=== PATIENT | male | born 1960 | race Caucasian/White ===

== ENCOUNTER 2019-12-29 12:38 | Emergency (ER) | payer OTHER, SELFPAY ==
[2019-12-29 12:42] VITALS: BP 173/84; PULSE 107; RESP 19; TEMP 36.6; O2SAT 98; BMI 32.3
--- NOTE | 2019-12-29 12:53 | ED_ITS ---
HPI - Allergic Reaction <MARIA DOLORES Broussard - Last Filed: 12/30/19 01:38> General Chief complaint: Allergic Reaction Stated complaint: allergic to bee stings,got stung Time Seen by Provider: 12/29/19 12:41 Source: patient Mode of arrival: Ambulatory Limitations: no limitations History of Present Illness HPI narrative: This is a 59 year male, occasional cigar smoker, who has history of anaphylactic shock history from a bee sting about 9 years ago presents to ED with chief complain of stung by a bee on right volar forearm 30 minutes ago coming into ED. patient had taken 100 mg of Benadryl before coming into ED. he reports did not have EpiPen with him and had not used it. Patient states had anaphylactic shock he had tachycardia and became unconscious. He had another bee sting 2 years ago and had used EpiPen and did not required further treatment. Patient reports his feeling little bit nervous but denies chest pain, dyspnea, short of breath, oropharyngeal swelling. Patient is visitor from [facility]. Related Data Previous Rx's Medication Instructions Recorded prednisone 50 mg PO DAILY 4 Days #4 tab 12/29/19 Allergies Allergy/AdvReac Type Severity Reaction Status Date / Time No Known Drug Allergies Allergy Verified 12/29/19 12:46 Review of Systems <MARIA DOLORES Broussard - Last Filed: 12/30/19 01:38> Review of Systems Narrative: General: Denies fever, chills, fatigue, malaise, sweats. HEENT: Denies sinus pain, ear pain, sore throat, difficulty swallowing, dizziness. Respiratory: Denies dyspnea, cough, wheezing, hemoptysis, sputum. Cardiovascular: Denies chest pain, palpitations, orthopnea, edema. Gastrointestinal: Denies nausea, vomiting, abdominal pain, diarrhea, constipation, melena. Skin: Slight discomfort and redness to right volar forearm from bee sting. Neurologic: Denies weakness, headache, numbness, change in speech, confusion, seizures, incoordination. Psychiatric: Reports nervous. No concerning psychosocial issues. Patient History <MARIA DOLORES Broussard - Last Filed: 12/30/19 01:38> Surgical History Hx of cholecystectomy (Acute) Social History Smoking Status: Current some day smoker Smoking Status: Current some day smoker tobacco type: cigars alcohol intake frequency: holidays/special occasions only Substance Use Type: does not use Exam <MARIA DOLORES rBoussard - Last Filed: 12/30/19 01:38> Narrative Exam Narrative: GEN: Alert, oriented x 3, well appearing and nourished, and in no acute distress but appears to be apprehensive. Head: Normal cephalic, atraumatic. No scalp or temporal tenderness, palpable mass or rash. EYES: Pupils are equal, round, and reactive to light and accommodation. Extraocular muscles are intact bilaterally. There is no subconjunctival hemorrhage, exudate and sclera non-icteric. ENT: Hearing grossly intact. Nose without bleeding, purulent discharge or deviation. Mucous membrane moist, no mucosal lesion. Throat without erythema, tonsillar hypertrophy or exudate. Uvula in midline, airway patent with swelling to tongue or throat. Neck: Trachea in midline. No JVD, non-tender without lymphadenopathy. No masses or thyroid megaly. Supple, non-tender and no meningeal signs. CARDIAC: Normal tachy rate at 100's and regular rhythm without murmurs, gallops, or rubs. No chest wall tenderness. No peripheral edema, cyanosis or pallor. Capillary refill is less than 2 seconds. RESPIRATORY: Lungs are clear to auscultate bilaterally. No cough, wheezes, rales, or rhonchi. No stridor, respiratory distress, increase work of breathing, or accessary muscle used. ABD: Abdomen soft, nontender and non-distended. No guarding or rebound tenderness to palpate. Bowel sounds are normal in all 4 quadrants. There is no palpable masses or organomegaly. EXT: Full painless ROM of all extremities with no loss of sensation, strength, effusion or edema. SKIN: Mildly raised red erythematous lesion on right forearm with mild tenderness. Warm, dry, normal color for patient. BACK: Nontender without deformity or crepitance. No flank tenderness. NEUROLOGICAL: Alert and oriented to place, time and person. Sensation and motor function intact bilaterally. No facial droops, dysphasia. PSYCHIATRIC: Good judgement and reason, without hallucinations, abnormal behaviors during the examination. Patient is not suicidal. Initial Vital Signs Initial Vital Signs: Vital Signs Temperature 97.8 F 12/29/19 12:42 Pulse Rate 107 H 12/29/19 12:42 Respiratory Rate 19 12/29/19 12:42 Blood Pressure 173/84 H 12/29/19 12:42 Pulse Oximetry 98 12/29/19 12:42 <Ilene Howell MD - Last Filed: 12/30/19 07:22> Initial Vital Signs Initial Vital Signs: Vital Signs Temperature 97.8 F 12/29/19 12:42 Pulse Rate 107 H 12/29/19 12:42 Respiratory Rate 19 12/29/19 12:42 Blood Pressure 173/84 H 12/29/19 12:42 Pulse Oximetry 98 12/29/19 12:42 Scores <MARIA DOLORES Broussard - Last Filed: 12/30/19 01:38> GCS Aaron coma scale eye opening: Spontaneous Partridge coma scale verbal response: Orientated Partridge coma scale motor response: Obey commands Aaron coma scale total score: 15 Course <MARIA DOLORES Broussard - Last Filed: 12/30/19 01:38> Orders Ordered: Discontinued Medications Famotidine (Pepcid) 20 mg in 50 mls @ 200 mls/hr IV NOW ONE Stop: 12/29/19 13:03 Last Infusion: 12/29/19 13:23 Dose: 0 mls/hr Documented by: Admin: 12/29/19 13:00 Dose: 200 mls/hr Documented by: GEMA Methylprednisolone (Solu-Medrol 125 Mg Vial) 125 mg IV NOW ONE Stop: 12/29/19 12:50 Last Admin: 12/29/19 13:00 Dose: 125 mg Documented by: GEMA Vital Signs Vital signs: Vital Signs - 8 hr 12/29/19 12:42 Temperature 97.8 F Pulse Rate 107 H Respiratory Rate 19 Blood Pressure 173/84 H Pulse Oximetry 98 <Ilene Howell MD - Last Filed: 12/30/19 07:22> Orders Ordered: Discontinued Medications Famotidine (Pepcid) 20 mg in 50 mls @ 200 mls/hr IV NOW ONE Stop: 12/29/19 13:03 Last Infusion: 12/29/19 13:23 Dose: 0 mls/hr Documented by: Admin: 12/29/19 13:00 Dose: 200 mls/hr Documented by: GEMA Methylprednisolone (Solu-Medrol 125 Mg Vial) 125 mg IV NOW ONE Stop: 12/29/19 12:50 Last Admin: 12/29/19 13:00 Dose: 125 mg Documented by: GEMA Vital Signs Vital signs: Vital Signs - 8 hr 12/29/19 12:42 Temperature 97.8 F Pulse Rate 107 H Respiratory Rate 19 Blood Pressure 173/84 H Pulse Oximetry 98 MDM - Allergic Reaction <HARVEY BroussardP - Last Filed: 12/30/19 01:38> Differential Diagnosis Differential diagnosis: Likely allergic reaction Medical Records Attestation: I reviewed the patient's medical records. [facility] [place] Narrative Medical decision making narrative: This is a 59-year-old male who is a visitor from [facility] presents to ED after he was stung by a bee on left volar aspect of forearm. Patient states he had an anaphylactic shock in the past and had to receive epinephrine injection and monitored in the hospital about 8-9 years ago had another bee stung 2-3 years ago which self treated with epinephrine. Patient had taken 100 mg of Benadryl p.o. for coming into ED. physical exam was unremarkable except elevated heart rate in 107. No symptoms of chest pain, breathing difficulty, or pharyngeal swelling, nausea or vomiting, syncopal episode. Patient received IV Solu-Medrol 125 mg and Pepcid 20 mg monitored over 2 hours without any significant anaphylactic symptoms. Patient's heart rate improved to 80s to 90s with slightly elevated blood pressure of 147/73. He was satting 95-98% in room air with eupnea. Patient discharged to home and advised to use [id number] Benadryl as needed, Pepcid, prednisone for next 4 days additional course for prednisone symptoms persists. Patient reports he has an epinephrine injection readily available. Return precautions were discussed with patient and patient verbalized understanding and agreement with the treatment plan. Discharge Plan Departure Patient Disposition: Home Clinical Impression: Allergic reaction Qualifiers: Encounter type: initial encounter Qualified Code(s): T78.40XA - Allergy, unspecified, initial encounter Discharge Date/Time: 12/29/19 14:22 Instructions: DI for Anaphylaxis, DI for Insect Allergy Activity Restrictions/Additional Instructions: You have been diagnosed with [allergy reaction to bee stings. No anaphylactic shock today. You were treated with IV methylprednisone (steroid) 125 mg and Pepcid (histamine kalyn). No epinephrine treatment was given.]. What to do: *Take your medications as directed. You can continue to use Benadryl 25-50 mg as needed up to 4 times a day. You can use [id number] Pepcid. Prednisone 50 mg for next 4 days in case symptoms recur. *Follow up with your primary care provider in 2-3 days, call for an appointment. Let them know you were seen in the ED and that we asked you to be seen in follow up. *Return to ED if you have any new, worsening, or concerning symptoms, such as [chest pain, breathing difficulty, lightheadedness, nausea/vomiting, unable to tolerate fluids, fever, skin infection-increasing redness, swelling, warmth, pain, or purulent discharge or any other concerns]. Prescriptions: New prednisone 50 mg tablet 50 mg PO DAILY 4 Days Qty: 4 RF: 0 <Ilene Howell MD - Last Filed: 12/30/19 07:22> Cosign ED Attending Cosignature Attestation: I was immediately available in the department for consultation throughout this patient's visit. I agree with documentation as above. Ilene Howell MD
[2019-12-29] MEDS: methylPREDNISolone 125 MG/2 ML VIAL IV (13:00)
[2019-12-29] MEDS: FAMOTIDINE 20 MG/50 ML PIGGYBACK 200 MG IV (13:00)
[2019-12-29 13:12] VITALS: PULSE 92; RESP 25; O2SAT 95
[2019-12-29 13:24] VITALS: BP 156/76; PULSE 80; RESP 19; O2SAT 98
[2019-12-29 13:30] VITALS: BP 147/73; PULSE 91; RESP 22; O2SAT 95
[2019-12-29 14:05] VITALS: PULSE 82
[2019-12-29 14:21] VITALS: BP 148/77; PULSE 99; RESP 17; O2SAT 96
== END 2019-12-29 14:22 | disposition home or self-care (01) ==
PROVIDERS: Emergency Provider Nurse Practitioner Family
DX: T78.40XA Allergy, unspecified, initial encounter (principal); T63.441A Toxic effect of venom of bees, accidental (unintentional), initial encounter
CPT/HCPCS: 36415; 96365; 96375; 99284; J2930